=== PATIENT | male | born 1945 | race Two or more races ===

== ENCOUNTER → 2016-07-22 | Outpatient (CLI) | payer MEDICARE, MEDICAID ==
[2016-07-22 09:58] LABS: CHOLESTEROL 183.53 mg/dL (0-200); Direct HDL 36 mg/dL (>40); TRIGLYCERIDES 150 mg/dL (<150)
[2016-07-22 10:08] LABS: DIRECT LDL 121 mg/dL (<100)
[2016-07-22 10:13] LABS: FREE T3 3.98 pg/mL (2.77-5.27)
[2016-07-22 10:27] LABS: THYROID STIMULATING HORMONE 6.19 uIU/mL (0.47-4.68)
== END ==
LOC: OD 08:44
PROVIDERS: ATTEND Internal Medicine
DX: E03.9 Hypothyroidism, unspecified (principal); E78.5 Hyperlipidemia, unspecified
CPT/HCPCS: 36415; 80061; 84436; 84443; 84481

== ENCOUNTER → 2016-10-21 | Outpatient (CLI) | payer MEDICARE, MEDICAID | LOC: OD 10:03 | PROVIDERS: ATTEND Internal Medicine | DX: E03.9 Hypothyroidism, unspecified (principal) | CPT/HCPCS: 36415; 84443 ==

== ENCOUNTER → 2017-02-14 | Outpatient (CLI) | payer MEDICARE, MEDICAID ==
[2017-02-14 11:03] LABS: ABSOLUTE BASOPHILS # (AUTO) 0.1 10^3/uL (0.0-0.2); ABSOLUTE EOSINOPHILS # (AUTO) 0.1 10^3/uL (0.0-0.6); ABSOLUTE LYMPHOCYTES (AUTO) 1.8 10^3/uL (0.5-4.7); ABSOLUTE MONOCYTES (AUTO) 0.6 10^3/uL (0.1-1.4); ABSOLUTE NEUT (AUTO) 3.4 10^3/uL (1.7-8.2); BASOPHILS % (AUTO) 0.9 % (0-2); EOSINOPHILS % (AUTO) 0.9 % (0-6); HEMATOCRIT 42.6 % (37.9-51.0); HEMOGLOBIN 15.2 g/dL (13.5-17.0); LYMPHOCYTES % (AUTO) 30.4 % (13-45); MEAN CORPUSCULAR HEMOGLOBIN 32.9 pg (27.0-33.4); MEAN CORPUSCULAR HGB CONC 35.6 g/dL (32.0-36.0); MEAN CORPUSCULAR VOLUME 93 fl (80-97); MONOCYTES % (AUTO) 9.8 % (3-13); RED BLOOD COUNT 4.61 10^6/uL (4.35-5.55); RED CELL DISTRIBUTION WIDTH 13.7 % (11.5-14.0); WHITE BLOOD COUNT 5.8 10^3/uL (4.0-10.5)
[2017-02-14 11:20] LABS: ALANINE AMINOTRANSFERASE 34 U/L (21-72); ALBUMIN 4.1 g/dL (3.5-5.0); ALKALINE PHOSPHATASE 71 U/L (38-126); ANION GAP 11 (5-19); ASPARTATE AMINO TRANSFERASE 27 U/L (17-59); BILIRUBIN,DIRECT 0.3 mg/dL (0.0-0.4); BILIRUBIN,TOTAL 1.8 mg/dL (0.2-1.3); BLOOD UREA NITROGEN 19 mg/dL (7-20); CALCIUM 9.7 mg/dL (8.4-10.2); CARBON DIOXIDE 28 mmol/L (22-30); CHLORIDE 104 mmol/L (98-107); CREATININE RESULT 0.96 mg/dL (0.52-1.25); Direct HDL 31 mg/dL (>40); GLUCOSE 116 mg/dL (75-110); POTASSIUM 4.2 mmol/L (3.6-5.0); SODIUM 142.5 mmol/L (137-145); TOTAL PROTEIN 7.4 g/dL (6.3-8.2); TRIGLYCERIDES 174 mg/dL (<150)
[2017-02-14 11:31] LABS: DIRECT LDL 43 mg/dL (<100)
[2017-02-14 11:34] LABS: VLDL CHOLESTEROL 34.8 mg/dL (10-31)
== END ==
LOC: OD 10:01
PROVIDERS: ATTEND Family Medicine Geriatric Medicine
DX: I10 Essential (primary) hypertension (principal); E78.5 Hyperlipidemia, unspecified; E03.9 Hypothyroidism, unspecified; Z79.899 Other long term (current) drug therapy
CPT/HCPCS: 36415; 80053; 80061; 84443; 85025

== ENCOUNTER → 2019-05-24 | Outpatient (CLI) | payer MEDICARE, MEDICAID ==
[2019-05-24 08:31] LABS: HEMATOCRIT 47.2 % (37.9-51.0); HEMOGLOBIN 16.6 g/dL (13.5-17.0); MEAN CORPUSCULAR HEMOGLOBIN 31.9 pg (27.0-33.4); MEAN CORPUSCULAR HGB CONC 35.2 g/dL (32.0-36.0); MEAN CORPUSCULAR VOLUME 91 fl (80-97); PLATELET COUNT 154 10^3/uL (150-450); RED BLOOD COUNT 5.21 10^6/uL (4.35-5.55); RED CELL DISTRIBUTION WIDTH 13.3 % (11.5-14.0); WHITE BLOOD COUNT 6.8 10^3/uL (4.0-10.5)
[2019-05-24 09:07] LABS: ALBUMIN 4.4 g/dL (3.5-5.0); ALKALINE PHOSPHATASE 67 U/L (38-126); ANION GAP 11 (5-19); ASPARTATE AMINO TRANSFERASE 24 U/L (17-59); BILIRUBIN,DIRECT 0.1 mg/dL (0.0-0.4); BILIRUBIN,TOTAL 1.6 mg/dL (0.2-1.3); BLOOD UREA NITROGEN 11 mg/dL (7-20); CALCIUM 9.6 mg/dL (8.4-10.2); CARBON DIOXIDE 31 mmol/L (22-30); CHLORIDE 100 mmol/L (98-107); CHOLESTEROL 130.58 mg/dL (0-200); GLUCOSE 123 mg/dL (75-110); POTASSIUM 4.1 mmol/L (3.6-5.0); TOTAL PROTEIN 8.1 g/dL (6.3-8.2); TRIGLYCERIDES 302 mg/dL (<150)
[2019-05-24 09:18] LABS: DIRECT LDL 53 mg/dL (<100)
[2019-05-24 09:19] LABS: VLDL CHOLESTEROL 60.4 mg/dL (10-31)
[2019-05-24 09:30] LABS: ABSOLUTE LYMPHOCYTES# (MANUAL) 2.7 10^3/uL (0.5-4.7); ABSOLUTE MONOCYTES # (MANUAL) 0.5 10^3/uL (0.1-1.4); BASOPHILS % (MANUAL) 1 % (0-2); EOSINOPHILS % (MANUAL) 1 % (0-6); LYMPHOCYTES % (MANUAL) 25 % (13-45); MONOCYTES % (MANUAL) 8 % (3-13); PLATELET COMMENT ADEQUATE; RBC MORPHOLOGY COMMENT NORMO-CYTIC/CHROMIC; SEGMENTED NEUTROPHILS % (MAN) 51 % (42-78); TOTAL CELLS COUNTED 100
[2019-05-27 13:54] LABS: PATH REVIEW PATHOLOGIST REVIEWED
== END ==
LOC: OD 08:05
PROVIDERS: ATTEND Family Medicine Geriatric Medicine
DX: I10 Essential (primary) hypertension (principal); E03.9 Hypothyroidism, unspecified; R73.01 Impaired fasting glucose; E78.5 Hyperlipidemia, unspecified; Z79.899 Other long term (current) drug therapy
CPT/HCPCS: 36415; 80053; 80061; 83036; 84443; 85025

== ENCOUNTER 2019-06-27 09:14 | Day surgery (SDC) | payer MEDICARE, MEDICAID ==
[~2019-06-27 09:14] MED LIST: KETOROLAC TROMETHAMINE 0.45% 4 DROP/0.4 ML DROPERETTE OS PRN
[2019-06-27] MEDS ORDERED: TRYPAN BLUE 0.06 % OPH SOLN 0.5 ML DISP.SYRIN ONE (09:40)
[2019-06-27] MEDS: BESIFLOXACIN HCL 0.6% OPH SUSP 5 ML BOTTLE OS PRN ×4 (10:04→11:00)
[2019-06-27] MEDS: TETRACAINE HCL 0.5% OPH SOLN 4 ML OS PRN ×3 (10:04→10:37)
[2019-06-27] MEDS: TROPICAMIDE 1% OPH SOLN 15 ML OS PRN ×3 (10:04→10:19)
[2019-06-27] MEDS: CYCLOPENTOLATE 0.2%/PHENYLEPHRINE 1% OPH SOLN 2 ML OS PRN ×3 (10:04→10:19)
[2019-06-27] MEDS ORDERED: FENTANYL CITRATE INJ/PF 100 MCG/2 ML AMPUL ONE (10:15)
[2019-06-27] MEDS ORDERED: MIDAZOLAM 2 MG/2 ML INJ ONE (10:15)
[2019-06-27] MEDS: DORZOLAMIDE HCL 2%/TIMOLOL MALEAT 0.5% OPH SOLN 10 ML OS PRN ×2 (10:42→11:00)
[2019-06-27] MEDS: LIDOCAINE 1%/PHENYLEPHRINE 1.5% 1 ML VIAL ONE ×2 (10:42→10:49)
[2019-06-27] MEDS: EPINEPHRINE INJ/PF 1 MG/1 ML AMPULE ONE ×2 (10:42→10:49)
[2019-06-27] MEDS: CHONDR SU A NA/HYALUR INTRAOC KIT (SURGICARE) ONE ×2 (10:42→10:49)
--- NOTE | 2019-06-28 07:39 | Operative Report ---
Operative Report-[facility] Operative Report: DATE OF SURGERY: 06/27/2019 PREOPERATIVE DIAGNOSIS: Cataracts, left eye POSTOPERATIVE DIAGNOSIS: Cataract, left eye OPERATION: Cataract extraction with insertion of an IOL of the left eye. Intraocular Lens Model: [22.5 sn60wf] Patient underwent surgery because having difficulty driving and did not pass his [place] driver's test SURGEON: Kirby Becker MD ANESTHESIA: Topical PROCEDURE: After obtaining appropriate consent, the patient's left eye was prepped and draped in a sterile fashion as well as the surgeon in the sterile manner and cataract surgery was started. First a paracentesis blade was used to make a side-port incision. Viscoelastic was used to inflate the anterior chamber. Next a 2.4 mm incision was made with a 2.4 mm blade, clear corneal temporarily. A continuous capsulorrhexis was made using a cystotome and Utrata forceps. Following this hydrodissection was carried out to make the lens fully loose and mobile and it was rotated 90 degrees. Following this, a divide and conquer technique was used to phacoemulsify the lens. The remaining cortex was removed with an irrigation/aspiration. Provisc was instilled into the capsular bag to inflate the bag.The intraocular lens was placed. The remaining viscoelastic material was removed with irrigation/aspiration. Following this, the incision was found to be watertight. Besivance and Cosopt was instilled into the eye and a protective shield was placed over the eye. The patient was returned to the postoperative recovery in a stable condition.
== END 2019-06-27 11:37 | disposition home or self-care (01) ==
LOC: SC 09:14
PROVIDERS: ATTEND Internal Medicine
DX: H25.89 Other age-related cataract (principal); H57.03 Miosis; I10 Essential (primary) hypertension; E07.9 Disorder of thyroid, unspecified; Z79.899 Other long term (current) drug therapy; F17.210 Nicotine dependence, cigarettes, uncomplicated
CPT/HCPCS: 66984; 00142; V2632; J2250; J3490 ×2; A9270; J0171; J2370; 142; J3010

== ENCOUNTER 2019-07-18 09:42 | Day surgery (SDC) | payer MEDICARE, MEDICAID ==
[~2019-07-18 09:42] MED LIST changes: +KETOROLAC TROMETHAMINE 0.45% 4 DROP/0.4 ML DROPERETTE OD PRN; -KETOROLAC TROMETHAMINE 0.45% 4 DROP/0.4 ML DROPERETTE OS PRN
[2019-07-18] MEDS: TETRACAINE HCL 0.5% OPH SOLN 4 ML OD PRN ×3 (10:25→10:56)
[2019-07-18] MEDS: TROPICAMIDE 1% OPH SOLN 15 ML OD PRN ×3 (10:25→10:44)
[2019-07-18] MEDS: BESIFLOXACIN HCL 0.6% OPH SUSP 5 ML BOTTLE OD PRN ×4 (10:25→11:19)
[2019-07-18] MEDS: CYCLOPENTOLATE 0.2%/PHENYLEPHRINE 1% OPH SOLN 2 ML OD PRN ×3 (10:25→10:44)
[2019-07-18] MEDS ORDERED: MIDAZOLAM 2 MG/2 ML INJ ONE (10:41)
[2019-07-18] MEDS ORDERED: TRYPAN BLUE 0.06 % OPH SOLN 0.5 ML DISP.SYRIN ONE (10:48)
[2019-07-18] MEDS: EPINEPHRINE INJ/PF 1 MG/1 ML AMPULE ONE ×2 (11:01→11:09)
[2019-07-18] MEDS: LIDOCAINE 1%/PHENYLEPHRINE 1.5% 1 ML VIAL ONE ×2 (11:01→11:09)
[2019-07-18] MEDS: CHONDR SU A NA/HYALUR INTRAOC KIT (SURGICARE) ONE ×2 (11:02→11:09)
[2019-07-18] MEDS: DORZOLAMIDE HCL 2%/TIMOLOL MALEAT 0.5% OPH SOLN 10 ML OD PRN ×2 (11:19)
--- NOTE | 2019-07-19 07:38 | Operative Report ---
Operative Report-[facility] Operative Report: DATE OF SURGERY: 07/18/2019 PREOPERATIVE DIAGNOSIS: Cataract, right eye POSTOPERATIVE DIAGNOSIS: Cataract, right eye OPERATION: Cataract extraction with insertion of an IOL of the right eye. Intraocular Lens Model: [22.0 sn60wf] Patient was having trouble seeing road signs and small print SURGEON: Kirby Becker MD ANESTHESIA: Topical PROCEDURE: After obtaining appropriate consent, the patient's right eye was prepped and draped in a sterile fashion as well as the surgeon in the sterile manner and cataract surgery was started. First a paracentesis blade was used to make a side-port incision. Viscoelastic was used to inflate the anterior chamber. Next a 2.4 mm incision was made with a 2.4 mm blade, clear corneal temporarily. A continuous capsulorrhexis was made using a cystotome and Utrata forceps. Following this hydrodissection was carried out to make the buddy fully loose and mobile and it was rotated. Following this, a divide and conquer technique was used to phacoemulsify the buddy. The remaining cortex was removed with an irrigation/aspiration. Provisc was instilled into the capsular bag to inflate the bag. The intraocular lens was placed. The remaining viscoelastic material was removed with irrigation/aspiration. Following this, the incision was found to be watertight. Besivance and Cosopt was instilled into the eye and a protective shield was placed over the eye. The patient was reurned to the postoperative recovery in a stable condition.
== END 2019-07-18 12:02 | disposition home or self-care (01) ==
LOC: SC 09:42
PROVIDERS: ATTEND Internal Medicine
DX: H25.89 Other age-related cataract (principal); H57.03 Miosis; Z96.1 Presence of intraocular lens; I10 Essential (primary) hypertension; E07.9 Disorder of thyroid, unspecified; Z87.891 Personal history of nicotine dependence
CPT/HCPCS: 66984; V2632; J2250; J3490 ×2; A9270; J0171; J2370

== ENCOUNTER → 2020-02-11 | Outpatient (CLI) | payer MEDICARE, MEDICAID ==
[2020-02-11 08:54] LABS: ABSOLUTE BASOPHILS # (AUTO) 0.1 10^3/uL (0.0-0.2); ABSOLUTE EOSINOPHILS # (AUTO) 0.1 10^3/uL (0.0-0.6); ABSOLUTE LYMPHOCYTES (AUTO) 2.9 10^3/uL (0.5-4.7); ABSOLUTE MONOCYTES (AUTO) 0.8 10^3/uL (0.1-1.4); ABSOLUTE NEUT (AUTO) 3.4 10^3/uL (1.7-8.2); EOSINOPHILS % (AUTO) 0.9 % (0-6); HEMATOCRIT 43.1 % (37.9-51.0); HEMOGLOBIN 15.3 g/dL (13.5-17.0); LYMPHOCYTES % (AUTO) 39.7 % (13-45); MEAN CORPUSCULAR HEMOGLOBIN 32.9 pg (27.0-33.4); MEAN CORPUSCULAR HGB CONC 35.6 g/dL (32.0-36.0); MEAN CORPUSCULAR VOLUME 93 fl (80-97); MONOCYTES % (AUTO) 11.1 % (3-13); PLATELET COUNT 146 10^3/uL (150-450); RED BLOOD COUNT 4.66 10^6/uL (4.35-5.55); RED CELL DISTRIBUTION WIDTH 13.3 % (11.5-14.0); SEGMENTED NEUTROPHILS % (AUTO) 47.3 % (42-78); TOTAL CELLS COUNTED % (AUTO) 100 %; WHITE BLOOD COUNT 7.2 10^3/uL (4.0-10.5)
[2020-02-11 09:11] LABS: ANION GAP 9 (5-19); BLOOD UREA NITROGEN 18 mg/dL (7-20); CALCIUM 9.3 mg/dL (8.4-10.2); CARBON DIOXIDE 28 mmol/L (22-30); CHLORIDE 102 mmol/L (98-107); CHOLESTEROL 182.71 mg/dL (0-200); GLUCOSE 127 mg/dL (75-110); POTASSIUM 4.1 mmol/L (3.6-5.0); URIC ACID 7.6 mg/dL (3.5-8.5)
[2020-02-11 09:19] LABS: TRIGLYCERIDES 786 mg/dL (<150)
[2020-02-11 09:22] LABS: DIRECT LDL 32 mg/dL (<100)
--- NOTE | 2020-02-11 10:13 | RADIOLOGY REPORT (SQ) ---
EXAM DESCRIPTION: KNEE LEFT 4 VIEWS IMAGES COMPLETED DATE/TIME: 02/11/2020 8:28 am REASON FOR STUDY: LT KNEE PAIN E78.5 HYPERLIPIDEMIA, UNSPECIFIED M25.569 PAIN IN UNSPECIFIED KNEE I10 ESSENTIAL (PRIMARY) HYPERTENSION COMPARISON: None. NUMBER OF VIEWS: Four views. TECHNIQUE: AP, lateral, and both oblique radiographic images acquired of the left knee. LIMITATIONS: None. FINDINGS: MINERALIZATION: Normal. BONES: No acute fracture or dislocation. No worrisome bone lesions. No significant osteophytes. JOINT: No effusion. No chondrocalcinosis. OTHER: No other significant finding. IMPRESSION: NEGATIVE STUDY OF THE LEFT KNEE. NO EXPLANATION FOR PAIN. TECHNICAL DOCUMENTATION: JOB ID: [id number] All Rights Reserved Reading location - IP/workstation name: [email or web address]
== END ==
LOC: OD 08:02
PROVIDERS: ATTEND Family Medicine Geriatric Medicine
DX: M25.562 Pain in left knee (principal); E78.5 Hyperlipidemia, unspecified; I10 Essential (primary) hypertension; E03.9 Hypothyroidism, unspecified; Z79.899 Other long term (current) drug therapy
CPT/HCPCS: 36415; 80048; 80061; 84443; 84460; 84550; 85025

== ENCOUNTER → 2020-03-24 | Outpatient (CLI) | payer MEDICARE, MEDICAID ==
[2020-03-24 08:30] LABS: CHOLESTEROL 199.71 mg/dL (0-200)
[2020-03-24 08:44] LABS: DIRECT LDL < 30 mg/dL (<100)
[2020-03-24 09:08] LABS: TRIGLYCERIDES 1013 mg/dL (<150)
== END ==
LOC: OD 07:14
PROVIDERS: ATTEND Family Medicine Geriatric Medicine
DX: R25.2 Cramp and spasm (principal); R73.01 Impaired fasting glucose; E03.9 Hypothyroidism, unspecified; E78.5 Hyperlipidemia, unspecified; Z79.899 Other long term (current) drug therapy
CPT/HCPCS: 36415; 80061; 83036; 83735; 84443; 84460; 84550